=== PATIENT | female | born 1985 | race Caucasian/White ===

== ENCOUNTER 2018-12-10 19:29 | Emergency (ER) | payer SELFPAY ==
[~2018-12-10 19:29] MED LIST: EXCEDRIN
== END 2018-12-10 21:03 | disposition left against medical advice (07) ==
LOC: ER 19:29
DX: T21.04XA Burn of unspecified degree of lower back, initial encounter (principal); Z53.21 Procedure and treatment not carried out due to patient leaving prior to being seen by health care provider; X08.8XXA Exposure to other specified smoke, fire and flames, initial encounter; Y93.89 Activity, other specified; Y92.89 Other specified places as the place of occurrence of the external cause; Y99.8 Other external cause status

== ENCOUNTER 2023-06-16 01:17 | Emergency (ER) | payer MEDICAID ==
[~2023-06-16] VITALS: Ht 149.9 cm; Wt 100.0 kg
[2023-06-16 01:25] VITALS: BP 128/72; PULSE 80; RESP 18; TEMP 98.3; O2SAT 98
[2023-06-16] MEDS ORDERED: ONDANSETRON HCL 4MG/2ML INJ IV ONE (01:45)
[2023-06-16] MEDS ORDERED: TAMSULOSIN HCL 0.4MG SR CAPSULE PO ONE (01:45)
[2023-06-16] MEDS ORDERED: KETOROLAC 15MG/ML VIAL IV ONE (01:45)
[2023-06-16] MEDS ORDERED: SODIUM CHLORIDE 0.9% 1,000 ML IV ONE (01:45)
== END 2023-06-16 07:34 | disposition left against medical advice (07) ==
LOC: ER 01:36
DX: R10.9 Unspecified abdominal pain (principal)
CPT/HCPCS: 99281; J7030

== ENCOUNTER 2023-11-30 22:24 | Emergency (ER) | payer MEDICAID ==
[~2023-11-30] VITALS: Ht 152.4 cm; Wt 100.0 kg
[2023-11-30 22:37] VITALS: O2SAT 99
[2023-11-30 23:12] LABS: HEMATOCRIT. 33.3 % (36.0-48.0); HEMOGLOBIN. 10.3 g/dL (12.0-16.0); MEAN CORPUSCULAR HEMOGLOBIN 21.6 pg (28.0-32.0); MEAN CORPUSCULAR VOLUME 69.8 fL (81.0-99.0); MEAN PLATELET VOLUME 8.5 fl (7.4-10.4); PLATELET 303 x1000/uL (130-400); RED BLOOD CELL COUNT 4.77 mill/uL (4.2-5.4); WHITE BLOOD COUNT 9.8 x1000/uL (4.5-11.0)
[2023-11-30 23:22] LABS: ALANINE AMINOTRANSFERASE 54 IU/L (10-49); ALBUMIN 4.7 g/dL (3.2-4.8); ASPARTATE AMINOTRANSFERASE 36 IU/L (<34); BILIRUBIN TOTAL 0.6 mg/dL (0.1-1.0); CALCIUM 8.4 mg/dL (8.7-10.4); CARBON DIOXIDE 24 mEq/L (21-32); CHLORIDE 106 mEq/L (98-107); CREATININE 0.7 mg/dL (0.6-1.0); GLUCOSE 95 mg/dL (70-105); PROTEIN TOTAL 8.6 g/dL (6.0-8.3); SODIUM 137 mEq/L (136-145); UREA NITROGEN BLOOD 12 mg/dL (9-23)
[2023-11-30 23:26] LABS: DIFFERENTIAL COMMENT 1
[2023-11-30 23:30] VITALS: TEMP 99.8
[2023-11-30] MEDS: ACETAMINOPHEN 325MG TABLET PO ONE (23:30)
[2023-11-30 23:31] LABS: ANISOCYTOSIS 1+; HYPOCHROMASIA 2+; MICROCYTOSIS 3+; OVALOCYTES 1+; PLATELET ESTIMATE NORMAL
[2023-12-01 00:35] VITALS: BP 140/74; PULSE 133; RESP 12
[2023-12-01] MEDS: KETOROLAC 30MG/ML VIAL IV ONE (00:35)
[2023-12-01] MEDS: SODIUM CHLORIDE 0.9% 1,000 ML IV ONE (00:35)
[2023-12-01] MEDS: KCL 10MEQ/50ML PREMIX 50 ML IV ONE (00:36)
[2023-12-01] MEDS: ONDANSETRON HCL 4MG/2ML INJ IV ONE (00:36)
[2023-12-01] MEDS ORDERED: ONDA4TAB11 PO (01:16)
[2023-12-01] MEDS ORDERED: LACT1TAB6 MT (01:16)
[2023-12-01] MEDS ORDERED: ACET-2708 MT (01:16)
[2023-12-01 06:08] LABS: HCG SCREEN NEGATIVE
== END 2023-12-01 06:43 | disposition home or self-care (01) ==
LOC: ER 22:24
DX: A08.4 Viral intestinal infection, unspecified (principal); Z90.49 Acquired absence of other specified parts of digestive tract; Z79.899 Other long term (current) drug therapy; Z20.822 Contact with and (suspected) exposure to COVID-19
CPT/HCPCS: 99291; 71045; 80053; 81025; 84703; 83690; 85025; 36415; 93005; 74176; 96365; 96375; 87426; 87804 ×2; J7030; J1885; J2405; J3480